=== PATIENT | male | born 1960 | race African-American/Black ===

== ENCOUNTER 2019-07-21 03:39 | Emergency (ER) | payer OTHER ==
[~2019-07-21] VITALS: Ht 175.3 cm; Wt 74.8 kg
[2019-07-21 03:46] VITALS: BP 139/81
--- NOTE | 2019-07-21 03:46 | NUR ---
ED Nurse Note: pt [place] from [place] asthmas exacerbation and ETOH intoxication. Pt VSS no ss of distress noted. ERMD at bedside. pt given food and drink, rt called for breathing tx. pt resting in bed.
[2019-07-21] MEDS ORDERED: PREDNISONE20 MG ORAL (03:53)
[2019-07-21] MEDS ORDERED: ALBUTEROL SULF8.5 G1 INH (03:53)
[2019-07-21] MEDS ORDERED: ZITHROMAX250 MG ORAL (03:53)
--- NOTE | 2019-07-21 03:54 | Emergency Room Report ---
History of Present Illness General Chief Complaint: Upper Respiratory Illness Source: Patient, EMS Present Illness HPI this is a 59 yo male with h/o asthma who presents with c/o coughing. onset today. worse with inspiration. no n/v/d. coughing is nonproductive in nature. no fever or chills. no cp. no sick contact. said that he has been drinking all day. Allergies: Coded Allergies: No Known Allergies (Unverified , 07/21/19) COVID-19 Screening Contact w/high risk pt: No Recent Travel to affected area: No Experienced COVID-19 symptoms?: Yes COVID-19 symptoms experienced: Cough Patient History Past Medical History: see triage record, old chart reviewed, asthma Past Surgical History: none Pertinent Family History: none Social History: Reports: smoking, alcohol use Immunizations: other Reviewed Nursing Documentation: PMH: Agreed; PSxH: Agreed Nursing Documentation-PMH Hx Asthma: Yes Review of Systems Eye: Denies: eye pain, blurred vision ENT: Denies: ear pain, nose congestion, throat swelling Respiratory: Reports: cough; Denies: shortness of breath Cardiovascular: Denies: chest pain, palpitations Gastrointestinal: Denies: abdominal pain, diarrhea, nausea, vomiting Musculoskeletal: Denies: back pain, joint pain Skin: Denies: rash Neurological: Denies: headache, numbness Endocrine: Denies: increased thirst, increased urine Hematologic/Lymphatic: Denies: easy bruising All Other Systems: negative except mentioned in HPI Physical Exam Vital Signs Date Time Temp Pulse Resp B/P (MAP) Pulse Ox O2 Delivery O2 Flow Rate FiO2 07/21/19 03:36 97.2 79 16 139/81 (100) 98 Room Air vitals normal Sp02 EP Interpretation: reviewed, normal General Appearance: well appearing, no apparent distress, alert Head: normocephalic, atraumatic Eyes: bilateral eye PERRL, bilateral eye EOMI ENT: hearing grossly normal, normal pharynx Neck: full range of motion, supple, no meningismus Respiratory: chest non-tender, normal breath sounds, inspiration - coughing with inspiration Cardiovascular #1: regular rate, rhythm, no murmur Gastrointestinal: normal bowel sounds, non tender, no mass, no organomegaly, no bruit, non-distended Musculoskeletal: back normal, normal range of motion, gait/station normal Neurologic: alert, oriented x3 Psychiatric: mood/affect normal Medical Decision Making Diagnostic Impression: Primary Impression: Pneumonitis Additional Impressions: URI (upper respiratory infection) Qualified Codes: J06.9 - Acute upper respiratory infection, unspecified Alcohol abuse ER Course pt with URI sx. no e/o acs, pe, dissection to name a few. no fever or sick contacts. doubt COVID infection. Last Vital Signs Date Time Temp Pulse Resp B/P (MAP) Pulse Ox O2 Delivery O2 Flow Rate FiO2 07/21/19 03:36 97.2 79 16 139/81 (100) 98 Room Air Status: improved Disposition: HOME, SELF-CARE Condition: Stable Scripts Azithromycin* (ZITHROMAX*) 250 Mg Tablet 250 MG ORAL DAILY, #6 TAB 0 Refills Take two tables once daily for 1 day, then one tablet once daily for 4 days. Prov: Zachariah Hickman MD 07/21/19 Prednisone* (PREDNISONE*) 20 Mg Tablet 40 MG ORAL DAILY, #8 TAB Prov: Zachariah Hickman MD 07/21/19 Albuterol Sulfate* (Albuterol Sulfate Hfa*) 8.5 Gm Hfa.aer.ad 2 PUFF INH Q4H, #1 INH Prov: Zachariah Hickman MD 07/21/19 Patient Instructions: Upper Respiratory Infection, Adult Additional Instructions: Stop smoking. Follow up with your doctor in 7 days. Return if worse. Zachariah Hickman MD Jul 21, 2019 03:54
--- NOTE | 2019-07-21 03:56 | NUR ---
ED Nurse Note: all medications administered. pt tolerated well no ss of distress noted. no adverse reactions noted.
[2019-07-21] MEDS ORDERED: Albuterol ud Inhalation HHN ONE (04:00)
--- NOTE | 2019-07-21 04:02 | NUR ---
ED Nurse Note: RT at bedside
--- NOTE | 2019-07-21 04:19 | NUR ---
ED Nurse Note: breathign tx completed. pt tolerated well no ss of distress noted. no adverse reactions noted.
[2019-07-21 04:25] VITALS: BP 142/85
--- NOTE | 2019-07-21 04:25 | NUR ---
ER DISCHARGE NOTE: Patient is cleared to be discharged home per ERMD, pt is aox4, on room air, with stable vital signs. pt was given dc and prescription instructions, pt was able to verbalize understanding, pt id band removed. pt is able to ambulate with steady gait. pt took all belongings.
== END 2019-07-21 04:25 | disposition home or self-care (01) ==
LOC: EDBD 03:39 → EMR 03:54
DX: J18.9 Pneumonia, unspecified organism (principal); J06.9 Acute upper respiratory infection, unspecified; F10.10 Alcohol abuse, uncomplicated
CPT/HCPCS: J7512; Z7502; 99283